=== PATIENT | male | born 1990 | race Asian ===

== ENCOUNTER 2018-10-24 05:54 | Emergency (ER) | payer OTHER ==
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
[2018-10-24] MEDS ORDERED: CYCL10TA PO (07:31)
[2018-10-24] MEDS ORDERED: NAPR-50 PO (07:31)
[2018-10-24 07:55] VITALS: BP 138/76
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
== END 2018-10-24 08:01 | disposition home or self-care (01) ==
LOC: M ED 05:54
DX: S16.1XXA Strain of muscle, fascia and tendon at neck level, initial encounter (principal); S01.81XA Laceration without foreign body of other part of head, initial encounter; V49.49XA Driver injured in collision with other motor vehicles in traffic accident, initial encounter; Z88.0 Allergy status to penicillin